=== PATIENT | male | born 1960 | race Hispanic/Latino ===

== ENCOUNTER → 2024-08-23 | Day surgery (SDC) | payer OTHER ==
[2024-08-15 10:33] LABS: BASOPHILS % 0.6 % (0.0-1.0); EOSINOPHILS # (AUTO) 0.2 (0.0-0.4); EOSINOPHILS % 3.2 % (0.0-6.0); HEMATOCRIT 43.8 % (38.2-49.6); HEMOGLOBIN 14.5 g/dL (14.0-18.0); LYMPHOCYTES # (AUTO) 1.9 (1.0-3.2); LYMPHOCYTES % 40.6 % (18.0-39.1); MEAN CORPUSCULAR HEMOGLOBIN 31.5 pg (28-32); MEAN CORPUSCULAR HGB CONC 33.1 g/dL (31-35); MEAN CORPUSCULAR VOLUME 95.2 fL (81-99); MONOCYTES # (AUTO) 0.5 (0.2-0.8); MONOCYTES % 10.3 % (4.4-11.3); NEUTROPHILS # (AUTO) 2.1 (2.1-6.9); NEUTROPHILS % 45.1 % (38.7-80.0); PLATELET COUNT 144 x10e3/uL (140-360); RED CELL DISTRIBUTION WIDTH 11.9 % (11.7-14.4); WHITE BLOOD COUNT 4.66 x10e3/uL (4.8-10.8)
[~2024-08-23] MED LIST: ALENDRONATE SOD70 MG PO; CYCLOBENZAPRINE10 MG PO; FAMOTIDINE20 MG PO; VIT D2 PO; ZESTRIL10 MG PO
[2024-08-23] MEDS: LACTATED RINGER'S 1,000 ML ONE (07:52)
[2024-08-23 10:06] VITALS: TEMP 97.8
[2024-08-23 10:20] VITALS: BP 127/81; PULSE 84; RESP 15; O2SAT 98
== END | disposition home or self-care (01) ==
LOC: OR 07:08
PROVIDERS: ATTEND Internal Medicine Gastroenterology
DX: K29.50 Unspecified chronic gastritis without bleeding (principal); B96.81 Helicobacter pylori [H. pylori] as the cause of diseases classified elsewhere; K31.A11 Gastric intestinal metaplasia without dysplasia, involving the antrum; K21.00 Gastro-esophageal reflux disease with esophagitis, without bleeding; K44.9 Diaphragmatic hernia without obstruction or gangrene; I10 Essential (primary) hypertension; J43.9 Emphysema, unspecified; Z01.810 Encounter for preprocedural cardiovascular examination; Z01.812 Encounter for preprocedural laboratory examination; Z79.899 Other long term (current) drug therapy; Z68.25 Body mass index [BMI] 25.0-25.9, adult; Z87.891 Personal history of nicotine dependence
CPT/HCPCS: 36415; 43239; 85025; 88305; 88342; 93005; J7121

== ENCOUNTER 2024-08-27 06:13 | Emergency (ER) | payer OTHER ==
[~2024-08-27] VITALS: Ht 180.3 cm; Wt 78.0 kg
[~2024-08-27 06:13] MED LIST changes: -CYCLOBENZAPRINE10 MG PO
[2024-08-27 06:16] VITALS: TEMP 98.3
[2024-08-27 06:37] LABS: BASOPHILS % 0.7 % (0.0-1.0); EOSINOPHILS # (AUTO) 0.2 (0.0-0.4); EOSINOPHILS % 3.2 % (0.0-6.0); HEMOGLOBIN 14.8 g/dL (14.0-18.0); MEAN CORPUSCULAR HEMOGLOBIN 31.5 pg (28-32); MEAN CORPUSCULAR HGB CONC 33.6 g/dL (31-35); MEAN CORPUSCULAR VOLUME 93.6 fL (81-99); MONOCYTES # (AUTO) 0.4 (0.2-0.8); MONOCYTES % 6.9 % (4.4-11.3); NEUTROPHILS # (AUTO) 2.7 (2.1-6.9); PLATELET COUNT 146 x10e3/uL (140-360); RED CELL DISTRIBUTION WIDTH 11.8 % (11.7-14.4); WHITE BLOOD COUNT 5.37 x10e3/uL (4.8-10.8)
[2024-08-27 06:41] LABS: BILIRUBIN,URINE NEGATIVE (NEGATIVE); CLARITY,URINE CLEAR (CLEAR); COLOR,URINE YELLOW (YELLOW); GLUCOSE, URINE NEGATIVE (NEGATIVE); KETONES,URINE NEGATIVE (NEGATIVE); LEUKOCYTE ESTERASE ,URINE NEGATIVE (NEGATIVE); NITRITE,URINE NEGATIVE (NEGATIVE); PH,URINE 6 (5 - 7); PROTEIN,URINE DIPSTICK NEGATIVE (NEGATIVE); URINE UROBILINOGEN 0.2 mg/dL (0.2 - 1)
[2024-08-27 06:46] LABS: BACTERIA,URINE FEW /HPF; EPITHELIAL CELLS,URINE RARE /LPF; MUCUS,URINE FEW (RARE); RBC,URINE 0-5 /HPF (0-5); WBC,URINE (MAN) 0-5 /HPF (0-5)
[2024-08-27 06:57] LABS: ALBUMIN 3.9 g/dL (3.5-5.0); ALBUMIN/GLOBULIN RATIO 1.3 (0.8-2.0); ANION GAP 13.8 mmol/L (8-16); BILIRUBIN,TOTAL 0.9 mg/dL (0.2-1.2); CALCIUM 8.8 mg/dL (8.4-10.2); CREATININE, SERUM 0.9 mg/dL (0.72-1.25); POTASSIUM 3.8 mmol/L (3.5-5.1)
[2024-08-27] MEDS ORDERED: IOPAMIDOL 370 MG/ML 100 ML INFUS..BTL INJ ONE (07:05)
[2024-08-27] MEDS ORDERED: SODIUM CHLORIDE 0.9% 100 ML ONE (07:06)
[2024-08-27] MEDS: LACTATED RINGER'S 0 ML ONE (07:07)
[2024-08-27] MEDS: KETOROLAC TROMETHAMINE 30 MG/ML VIAL IV STA (07:12)
[2024-08-27] MEDS: FAMOTIDINE 20 MG/2 ML VIAL IV STA (07:12)
[2024-08-27] MEDS: SODIUM CHLORIDE 0.9% 1000ML 1,000 ML IV ONE (07:13)
[2024-08-27] MEDS ORDERED: CYCLOBENZAPRINE10 MG PO (08:20)
[2024-08-27 08:37] VITALS: PULSE 65; RESP 15; O2SAT 99
== END 2024-08-27 08:38 | disposition home or self-care (01) ==
LOC: ER 06:17
DX: M54.50 Low back pain, unspecified (principal); R91.8 Other nonspecific abnormal finding of lung field; I10 Essential (primary) hypertension
CPT/HCPCS: 36415; 71275; 74174; 80053; 81001; 83690; 85025; 99284; J1885; J7030; J7050; Q9967

== ENCOUNTER → 2025-02-22 | Outpatient (REF) | payer OTHER ==
[~2025-02-22] MED LIST changes: +CYCLOBENZAPRINE10 MG PO
== END ==
LOC: CT 15:54
PROVIDERS: ATTEND Internal Medicine Pulmonary Disease
DX: R06.02 Shortness of breath (principal); R91.1 Solitary pulmonary nodule
CPT/HCPCS: 71250